=== PATIENT | female | born 1995 ===

== ENCOUNTER 2025-02-14 06:01 | Day surgery (SDC) | payer BC, SELFPAY ==
[2025-02-07 08:54] LABS: Hematocrit 43.9 % (37.0-47.0); Hemoglobin 14.8 g/dL (12.0-16.0); Mean Corp Hgb Conc. 33.7 g/dL (33.0-37.0); Mean Corpuscular Volume 93.2 fL (81.0-99.0); Nucleated Red Blood Cells % 0 %; Platelet Count 167 10^3/uL (130-400); Red Cell Dist. Width 12.2 % (11.5-14.5)
[2025-02-07 10:46] LABS: Blood Urea Nitrogen 16 mg/dl (7-17); Calcium 8.6 mg/dl (8.4-10.2); Carbon Dioxide 26 mmol/L (22-30); Chloride 106 mmol/L (98-107); Glucose 86 mg/dl (70-99); Potassium 4.3 mmol/L (3.5-5.1); Sodium 138 mmol/L (135-145); eGFR > 60.00
[2025-02-07 13:16] VITALS: BMI 46.2
[2025-02-14] VITALS (7 sets, daily range): BP systolic 95–109; BP diastolic 54–68; BMI 46.2
[2025-02-14] MEDS: CELEBREX 200 MG PO (06:57)
[2025-02-14] MEDS: TYLENOL 1000 MG PO (06:57)
[2025-02-14] MEDS: NORMOSOL-R/PLASMALYTE-A 1000 IV (06:59)
[2025-02-14] MEDS: ZOFRAN 4 MG IV (10:13)
[2025-02-14] MEDS: COMPAZINE 5 MG IV (10:51)
--- NOTE | 2025-02-14 17:21 | OR.RPT ---
Operative Report
Operative Report
Operative Report
Patient Name: Meenu Cornell

Date of Surgery: 02/14/2025
Surgeon:�Aayush Hills DPM
Milling Machine Operator:�Aayush Dennis DPM
Pre-operative Diagnosis:
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
Post-operative Diagnosis:
Same as preoperative
Procedure:
Resection of right talocalcaneal middle facet coalition (CPT 44936)
Anesthesia:
General anesthesia with regional popliteal nerve block
Hemostasis:
Pneumatic thigh tourniquet inflated to appropriate pressure
Estimated Blood Loss:
Minimal
Specimens:
Resected talocalcaneal coalition tissue
Implants:
None
Complications:
None
Indications for Procedure:
The patient presented with chronic right hindfoot pain, recurrent ankle and subtalar stiffness, and painful spastic peroneal tendons refractory to extensive conservative management, including activity modification, immobilization, orthotics,
physical therapy, and anti-inflammatory medications. Advanced imaging demonstrated a talocalcaneal middle facet coalition correlating with the patient�s clinical findings. Given persistent symptoms and functional limitation, surgical resection of
the middle facet coalition was recommended. The risks, benefits, alternatives, and expected postoperative course were discussed in detail with the patient, and informed consent was obtained.
Description of Procedure:
The patient was brought to the operating room and placed supine on the operating table. After induction of general anesthesia and administration of a regional block, a well-padded pneumatic thigh tourniquet was applied to the right lower extremity.
The right foot and ankle were then prepped and draped in the usual sterile fashion. Following a surgical time-out confirming patient identity, procedure, and operative site, the limb was elevated and exsanguinated, and the tourniquet was inflated.
A curvilinear medial hindfoot incision was made just inferior and posterior to the medial malleolus, carefully avoiding the posterior tibial neurovascular bundle. Dissection was carried down through the subcutaneous tissues with meticulous
hemostasis. The flexor retinaculum was identified and gently retracted, and the posterior tibial tendon was retracted dorsally and the FDL/FHL and neurovascular structures were retracted plantarly. All structures were protected throughout the
procedure.
Exposure of the subtalar joint revealed a fibrous-osseous coalition involving the middle facet of the talocalcaneal joint. Using a combination of osteotomes, curettes, and a high-speed tej, the middle facet coalition was carefully resected in its
entirety. Adequate resection was confirmed visually and fluoroscopically, with uatsdin of subtalar joint motion noted intraoperatively. The resection bed was smoothed, and bone wax was applied as needed to minimize bleeding. Interposition
material was placed within the resection site to reduce the risk of re-ossification.
The peroneal tendons were assessed indirectly, and reduction in spasticity was noted following uatsdin of subtalar motion. The surgical site was copiously irrigated with sterile saline. Layered closure was performed using 2-0 vicryl and 3-0
vicryl sutures for the deep and subcutaneous layers, and the skin was closed with 4-0 monocryl in a subcuticular fashion. A sterile dressing was applied, followed by a well-padded posterior splint with the foot maintained in neutral position.
The tourniquet was deflated, and prompt hyperemic response was observed. The patient tolerated the procedure well and was transferred to the recovery area in stable condition with intact neurovascular status to the right foot.
Postoperative Plan:
The patient will remain [id number] on the right lower extremity with crutches or other assistive devices. The patient was instructed to keep the dressing clean, dry, and intact until the first postoperative visit. Pain will be managed with
prescribed medications. The patient will follow up in the clinic in approximately 10�14 days for wound evaluation and suture removal. Progressive weight-bearing, range of motion exercises, and physical therapy will be initiated per protocol based on
clinical and radiographic healing.
== END 2025-02-14 11:25 | disposition home or self-care (01) ==
LOC: SDS 06:01
PROVIDERS: ATTENDING PHYSICIAN Student in an Organized Health Care Education/Training Program; FAMILY PHYSICIAN Nurse Practitioner Adult Health
DX: M25.571 Pain in right ankle and joints of right foot (principal)
CPT/HCPCS: 28116; 80048; 85025; 93005